=== PATIENT | female | born 1940 | race Caucasian/White ===

== ENCOUNTER → 2017-03-16 | Outpatient (CLI) | payer MEDICARE, BC ==
[~2017-03-16] MED LIST: ATOR20TA PO; ATOR20TA9 PO; CHOL100012 PO; CINN500C2 PO; CLIN300C8 PO; DILT360C26 PO; DOXY100T PO; FURO20TA3 PO; FURO40TA6 PO; MELA5TAB19 PO; METO25TA35 PO; METO50TA82 PO; POTA20TA14 PO; PSYL1POW PO; TELM80TA PO; WARF5TAB7 PO; WARF7.5T PO; WARF7.5T6 PO
== END | disposition home or self-care (01) ==
LOC: CFH 06:57
PROVIDERS: ATTEND Family Medicine
DX: R94.5 Abnormal results of liver function studies (principal)
CPT/HCPCS: 76705